=== PATIENT | male | born 1980 | race Caucasian/White ===

== ENCOUNTER 2019-03-21 20:24 | Emergency (ER) | payer BC, OTHER ==
--- NOTE | 2019-03-21 20:50 | EDM.PDOC ---
ED HPI GENERAL MEDICAL PROBLEM - General Chief Complaint: Chest Pain Stated Complaint: [facility] Time Seen by Provider: 03/21/19 20:49 - History of Present Illness INITIAL COMMENTS - FREE TEXT/NARRATIVE: 38-year-old male brought in with chest pain. About 5:30 6:00 this evening. He was brought in by EMS Patient wasn't doing anything too strenuous. And he developed some substernal chest pain and pressure. He then became very anxious about this because he has a very strong family history of coronary artery disease. The patient has some chest wall pain that seems to be a little different from this patient does not smoke is not treated for hypertension hyperlipidemia however his BMI is greater than 30. Several uncles and the patient's father who had premature coronary artery disease in their 40s. - Related Data Allergies Allergy/AdvReac Type Severity Reaction Status Date / Time hydrocodone Allergy Itching Verified 03/21/19 20:30 Home Meds: Home Meds . [No Known Home Meds] 03/21/19 [History] Past Medical History - Past Surgical History HEENT Surgical History: Reports: Tonsillectomy Male Surgical History: Reports: Vasectomy, Other (See Below) Other Male Surgeries/Procedures: vasectomy reversal Musculoskeletal Surgical History: Reports: Shoulder Surgery Social & Family History - Tobacco Use Smoking Status *Q: Former Smoker Used Tobacco, but Quit: Yes Month/Year Tobacco Last Used: December 15, 2013 - Caffeine Use Caffeine Use: Reports: Coffee - Recreational Drug Use Recreational Drug Use: No ED ROS GENERAL - Review of Systems Review Of Systems: See Below Constitutional: Reports: No Symptoms HEENT: Reports: No Symptoms Respiratory: Reports: No Symptoms Cardiovascular: Reports: Chest Pain Endocrine: Reports: No Symptoms GI/Abdominal: Reports: No Symptoms : Reports: No Symptoms Neurological: Reports: No Symptoms ED EXAM, GENERAL - Physical Exam Exam: See Below Exam Limited By: No Limitations General Appearance: Alert, No Apparent Distress Head: Atraumatic, Normocephalic Neck: Normal Inspection, Supple, Non-Tender, Full Range of Motion Respiratory/Chest: No Respiratory Distress, Lungs Clear, Normal Breath Sounds, Other (Is palpable chest wall discomfort in the left sternal area and in the left sided musculature noted this white male next the pain that brought him in) Cardiovascular: Regular Rate, Rhythm, No Edema, No Murmur GI/Abdominal: Normal Bowel Sounds, Soft, Non-Tender Back Exam: Normal Inspection, Other. No: CVA Tenderness (L), CVA Tenderness (R) Extremities: Normal Inspection, Non-Tender Neurological: Alert, Oriented, Normal Cognition EKG INTERPRETATION EKG Date: 03/21/19 Rhythm: NSR [place]: Normal P-Wave: Present QRS: Normal ST-T: Normal QT: Normal Comparison: NA - No Prior EKG EKG Interpretation Comments: Second EKG was unchanged Course - Vital Signs Last Recorded V/S: Last Vital Signs Temp 37.6 C 03/21/19 20:28 Pulse 90 03/21/19 20:28 Resp 16 03/21/19 20:28 BP 152/105 H 03/21/19 22:22 Pulse Ox 100 03/21/19 20:28 - Orders/Labs/Meds Orders: Active Orders 24 hr Category Date Time Status EKG Documentation Completion [RC] STAT Care 03/21/19 20:54 Active Chest 1V Frontal [CR] Stat Exams 03/21/19 20:54 Taken Nitroglycerin [Nitrostat] Med 03/21/19 20:56 Active 0.4 mg SL Q5M PRN Medication Orders Nitroglycerin (Nitrostat) 0.4 mg SL Q5M PRN PRN Reason: Chest Pain Last Admin: 03/21/19 22:22 Dose: 0.4 mg Labs: Laboratory Tests 03/21/19 03/21/19 03/21/19 Range/Units 21:00 21:05 21:05 WBC 10.06 H (4.23-9.07) K/mm3 RBC 5.06 (4.63-6.08) M/mm3 Hgb 16.0 (13.7-17.5) gm/L Hct 46.1 (40.1-51.0) % MCV 91.1 (79.0-92.2) fl MCH 31.6 (25.7-32.2) pg MCHC 34.7 (32.2-35.5) g/dl RDW Std Deviation 43.6 (35.1-43.9) fL Plt Count 298 (163-337) K/mm3 MPV 10.1 (9.4-12.3) fl Neutrophils % (Manual) 77 H (40-60) % Band Neutrophils % 1 (0-10) % Lymphocytes % (Manual) 13 L (20-40) % Atypical Lymphs % 0 % Monocytes % (Manual) 8 (2-10) % Eosinophils % (Manual) 0 L (0.8-7.0) % Basophils % (Manual) 1 (0.2-1.2) Platelet Estimate Adequate Plt Morphology Comment Normal RBC Morph Comment Normal PT 11.3 (9.5-12.1) SECONDS INR 1.04 APTT 28 (24-31) SECONDS Sodium (136-145) mEq/L Potassium (3.5-5.1) mEq/L Chloride (98-107) mEq/L Carbon Dioxide (21-32) mEq/L Anion Gap (5-15) BUN (7-18) mg/dL Creatinine (0.7-1.3) mg/dL Est Cr Clr Drug Dosing mL/min Estimated GFR (MDRD) (>60) mL/min BUN/Creatinine Ratio (14-18) Glucose (74-106) mg/dL Calcium (8.5-10.1) mg/dL Total Bilirubin (0.2-1.0) mg/dL AST (15-37) U/L ALT (16-63) U/L Alkaline Phosphatase (46-116) U/L Troponin I (0.00-0.056) ng/mL Total Protein (6.4-8.2) g/dl Albumin (3.4-5.0) g/dl Globulin gm/dL Albumin/Globulin Ratio (1-2) Urine Opiates Screen Presumptive positive H (IOQAOW=307) Ur Buprenorphine Scrn Negative (CUTOFF=10) Ur Oxycodone Screen Negative (LRB3NU=534) Urine Methadone Screen Negative (CAY8SZ=647) Ur Propoxyphene Screen Negative (VTOJQA=587) Ur Barbiturates Screen Negative (VFBOVB=808) Ur Tricyclics Screen Negative (QUKSVC=691) Ur Phencyclidine Scrn Negative (CUTOFF=25) Ur Amphetamine Screen Negative (KJBUNJ=128) U Methamphetamines Scrn Negative (HBVJNL=431) U Benzodiazepines Scrn Negative (MTZOVJ=376) U Cocaine Metab Screen Negative (YSLRBZ=913) U Marijuana (THC) Screen Negative (CUTOFF=50) 03/21/19 03/21/19 Range/Units 21:05 23:35 WBC (4.23-9.07) K/mm3 RBC (4.63-6.08) M/mm3 Hgb (13.7-17.5) gm/L Hct (40.1-51.0) % MCV (79.0-92.2) fl MCH (25.7-32.2) pg MCHC (32.2-35.5) g/dl RDW Std Deviation (35.1-43.9) fL Plt Count (163-337) K/mm3 MPV (9.4-12.3) fl Neutrophils % (Manual) (40-60) % Band Neutrophils % (0-10) % Lymphocytes % (Manual) (20-40) % Atypical Lymphs % % Monocytes % (Manual) (2-10) % Eosinophils % (Manual) (0.8-7.0) % Basophils % (Manual) (0.2-1.2) Platelet Estimate Plt Morphology Comment RBC Morph Comment PT (9.5-12.1) SECONDS INR APTT (24-31) SECONDS Sodium 139 (136-145) mEq/L Potassium 3.6 (3.5-5.1) mEq/L Chloride 103 (98-107) mEq/L Carbon Dioxide 21 (21-32) mEq/L Anion Gap 18.6 H (5-15) BUN 11 (7-18) mg/dL Creatinine 1.1 (0.7-1.3) mg/dL Est Cr Clr Drug Dosing 103.79 mL/min Estimated GFR (MDRD) > 60 (>60) mL/min BUN/Creatinine Ratio 10.0 L (14-18) Glucose 106 (74-106) mg/dL Calcium 9.9 (8.5-10.1) mg/dL Total Bilirubin 0.9 (0.2-1.0) mg/dL AST 25 (15-37) U/L ALT 37 (16-63) U/L Alkaline Phosphatase 75 (46-116) U/L Troponin I < 0.017 < 0.017 (0.00-0.056) ng/mL Total Protein 7.9 (6.4-8.2) g/dl Albumin 4.6 (3.4-5.0) g/dl Globulin 3.3 gm/dL Albumin/Globulin Ratio 1.4 (1-2) Urine Opiates Screen (URAJMC=962) Ur Buprenorphine Scrn (CUTOFF=10) Ur Oxycodone Screen (HNX6QK=711) Urine Methadone Screen (KES5OS=202) Ur Propoxyphene Screen (WGTJDT=776) Ur Barbiturates Screen (IYUXUQ=964) Ur Tricyclics Screen (BQDHQB=335) Ur Phencyclidine Scrn (CUTOFF=25) Ur Amphetamine Screen (YSCXLY=293) U Methamphetamines Scrn (PLNZGH=493) U Benzodiazepines Scrn (KWFUAB=882) U Cocaine Metab Screen (WRQFDL=911) U Marijuana (THC) Screen (CUTOFF=50) Meds: Medications Generic Name Dose Route Start Last Admin Trade Name Freq PRN Reason Stop Dose Admin Nitroglycerin 0.4 mg 03/21/19 20:56 03/21/19 22:22 Nitrostat SL 0.4 mg Q5M PRN Administration Chest Pain Discontinued Medications Generic Name Dose Route Start Last Admin Trade Name Freq PRN Reason Stop Dose Admin Aspirin 324 mg 03/21/19 20:55 03/21/19 21:12 Aspirin PO 03/21/19 20:56 Not Given ONETIME ONE Lorazepam 0.5 mg 03/21/19 21:31 03/21/19 21:45 Ativan PO 03/21/19 21:32 0.5 mg ONETIME ONE Administration - Re-Assessments/Exams Free Text/Narrative Re-Assessment/Exam: 03/22/19 00:37 Patient was somewhat anxious and was given a half milligram of Ativan that helped out quite a bit. Also given sublingual nitroglycerin his pain was much better prior to getting this, however his pain did improve to nill to nonexistent after this and never came back. Discuss his heart score he's had 2 negative troponins his risk of major acute coronary event within the next 6 weeks is less than 1% his heart score is 1 with his age less than 40 negative troponin 2 and normal EKG. He still perhaps to discuss heart stress testing such as a stress Cardiolite or stress echo with his regular physician with his very strong family history. Departure - Departure Time of Disposition: 00:40 Disposition: Home, Self-Care 01 Clinical Impression: Chest pain Forms: ED Department Discharge Additional Instructions: Return to the emergency room with any questions problems worsening symptoms. Follow-up with your primary physician very soon discuss heart stress testing. Start baby aspirin every day, 81 mg preferably enteric-coated. - My Orders Last 24 Hours: My Active Orders 03/21/19 20:54 EKG Documentation Completion [RC] STAT Chest 1V Frontal [CR] Stat 03/21/19 20:56 Nitroglycerin [Nitrostat] 0.4 mg SL Q5M PRN - Assessment/Plan Last 24 Hours: My Active Orders 03/21/19 20:54 EKG Documentation Completion [RC] STAT Chest 1V Frontal [CR] Stat 03/21/19 20:56 Nitroglycerin [Nitrostat] 0.4 mg SL Q5M PRN
[2019-03-21] MEDS ORDERED: Aspirin 81 MG Tab.Chew PO ONE (20:55)
[2019-03-21] MEDS ORDERED: Nitroglycerin 0.4 MG Tab.SL SL PRN (20:56)
[2019-03-21] MEDS ORDERED: LORazepam 1 MG Tab PO ONE (21:31)
--- NOTE | 2019-03-22 08:56 | CR ---
Chest: Portable view of the chest was obtained. Comparison: No previous chest x-ray. Heart size and mediastinum are within normal limits for portable technique. Lungs are clear. Bony structures are unremarkable. Impression: 1. Nothing acute is identified on portable chest x-ray. Diagnostic code #1
== END 2019-03-22 00:42 | disposition home or self-care (01) ==
LOC: JD.ED 20:24
DX: R07.2 Precordial pain (principal); Z88.5 Allergy status to narcotic agent; Z87.891 Personal history of nicotine dependence
CPT/HCPCS: 36415; 71045; 80053; 80306; 84484; 85007; 85027; 85610; 85730; 93005; 99285; A9270; 93010; 99284